=== PATIENT | female | born 1950 | race Caucasian/White ===

== ENCOUNTER → 2017-09-02 | Outpatient (CLI) | payer OTHER | LOC: M.MRI 01:42 | DX: G30.9 Alzheimer's disease, unspecified (principal); F02.80 Dementia in other diseases classified elsewhere, unspecified severity, without behavioral disturbance, psychotic disturbance, mood disturbance, and anxiety; F41.9 Anxiety disorder, unspecified; I10 Essential (primary) hypertension; K21.9 Gastro-esophageal reflux disease without esophagitis ==

== ENCOUNTER → 2018-01-29 | Outpatient (CLI) | payer OTHER | LOC: M.LAB 15:38 | DX: E03.8 Other specified hypothyroidism (principal); F02.80 Dementia in other diseases classified elsewhere, unspecified severity, without behavioral disturbance, psychotic disturbance, mood disturbance, and anxiety; F32.9 Major depressive disorder, single episode, unspecified; F41.9 Anxiety disorder, unspecified ==

== ENCOUNTER → 2019-01-13 | Outpatient (CLI) | payer OTHER | LOC: M.MRI 13:30 | DX: M48.02 Spinal stenosis, cervical region (principal); M47.22 Other spondylosis with radiculopathy, cervical region; M50.11 Cervical disc disorder with radiculopathy, high cervical region; N64.4 Mastodynia ==

== ENCOUNTER 2019-01-28 12:11 | Inpatient (IN) | payer OTHER ==
[~2019-01-28] VITALS: Ht 162.6 cm; Wt 93.0 kg
[2019-01-28 12:12] VITALS: BP 185/95
[2019-01-28] MEDS ORDERED: NAMENDA 10 MG T10 MG PO ×2 (12:30→14:28)
[2019-01-28 12:48] LABS: HEMATOCRIT 40.7 % (37.0-47.0); HEMOGLOBIN 13.5 gm/dL (12.0-15.0); MCH 30.5 pg (26.0-34.0); MCHC 33.1 g/dL (28.0-37.0); MCV 92.1 fL (80.0-100.0); MPV 7.5 fl. (7.2-11.1); NUCLEATED RBCS 0 /100WBC; PLATELET COUNT* 235 thou/uL (150-400); RBC 4.42 mil/uL (4.20-5.00); RDW-CV 13.7 % (10.5-14.5); WBC 7.5 thou/uL (4.0-11.0)
[2019-01-28 12:54] LABS: URINE BILIRUBIN NEGATIVE (Negative); URINE BLOOD NEGATIVE (Negative); URINE CLARITY CLEAR; URINE COLOR YELLOW; URINE GLUCOSE-RANDOM NEGATIVE (Negative); URINE KETONES TRACE (Negative); URINE LEUKOCYTES-REFLEX NEGATIVE (Negative); URINE NITRITE-REFLEX NEGATIVE (Negative); URINE PROTEIN 2+ (Negative); URINE SPECIFIC GRAVITY >= 1.030 (1.005-1.030); URINE UROBILINOGEN 0.2 E.U./dl (0.2-1.0)
[2019-01-28 12:57] LABS: PROTIME 10.5 Seconds (9.20-11.50)
[2019-01-28 13:07] LABS: SQUAMOUS 4-10 Moderate /LPF (0-3)
[2019-01-28 13:08] LABS: URINE WBC-REFLEX 0-5 Rare /HPF (0-5)
[2019-01-28 13:09] LABS: CRYSTALS None Seen /LPF (None Seen); HYALINE CASTS 0-3 Few /LPF (None Seen); MUCUS >6 Heavy strn/LPF (None Seen); URINE RBC 0-2 Rare /HPF (0-2)
[2019-01-28 13:20] LABS: ANION GAP 9 mmol/L (7-16); BUN 12 mg/dL (7-18); CALCIUM 8.8 mg/dL (8.5-10.1); CHLORIDE 105 mmol/L (98-107); CO2 24 mmol/L (21-32); GLUCOSE 136 mg/dL (70-99); POTASSIUM 4.7 mmol/L (3.5-5.1); SODIUM 138 mmol/L (136-145)
[2019-01-28 13:30] LABS: ABSOLUTE LYMPHOCYTES 0.5 thou/uL (0.8-5.3); ABSOLUTE MONOCYTES 0.2 thou/uL (0.0-1.2); ABSOLUTE NEUTROPHILS 6.8 thou/uL (1.6-8.1); PLATELET ESTIMATE ADEQUATE
[2019-01-28 13:33] LABS: ALBUMIN 3.4 g/dL (3.4-5.0); ALKALINE PHOSPHATASE 95 U/L (46-116); LIPASE 108 U/L (73-393); SGOT 25 U/L (15-37); SGPT 17 U/L (30-65); TOTAL BILIRUBIN 0.5 mg/dL (<0.1-1.0); TOTAL PROTEIN 7.2 g/dL (6.4-8.2); TROPONIN-I LEVEL <0.06 ng/mL (<0.06)
--- NOTE | 2019-01-28 14:18 | NUR ---
DR. MEHTA AT BEDSIDE WITH PATIENT.
[2019-01-28] MEDS ORDERED: CELEXA10 MG PO (14:27)
[2019-01-28] MEDS ORDERED: SYNTHROID75 MCG PO (14:28)
[2019-01-28] MEDS ORDERED: ZANTAC 150MG T150 MG PO (14:28)
[2019-01-28 15:10] VITALS: BP 154/68
--- NOTE | 2019-01-28 15:18 | EKG ---
[place] [address] ELECTROCARDIOGRAM REPORT Name: JANES HUERTAS Room: [address] ADM IN [facility].#: [id number] Admission: 01/28/19 Attend Phys: Latoya Sanderson MD Discharge: Date of : 46 Report #: [id number] THIS REPORT FOR: //name// [facility] ED Test Date: 2019-01-28 Test Time: 12:16:49 Pat Name: JANES HUERTAS Department: Room: [facility] Gender: F Wax Engraver: EV : 1950 Requested By: Korey Bateman Order Number: [id number] MD: Rogelio Ware Measurements Intervals [place] Rate: 60 P: 62 CT: 167 QRS: -17 QRSD: 107 T: 3 QT: 437 QTc: 437 Interpretive Statements Sinus rhythm Borderline left axis deviation Baseline wander in lead(s) V3 No previous ECG available for comparison Electronically Signed On 01-28-2019 15:17:58 CDT by Rogelio Ware [email or web address] <ELECTRONICALLY SIGNED> By: Rogelio Ware MD, [facility] 01/28/19 1517 1216 121 Rogelio Ware MD, [facility] /EPI
[2019-01-28 16:05] VITALS: BP 129/51
--- NOTE | 2019-01-28 18:04 | NUR ---
PATIENT ARRIVED TO FLOOR FROM ER AT 1605. NO SIGNS OF DISTRESS OBSERVED. ALL SAFETY MEASURES MAINTAINED. CALL LIGHT WIHTIN REACH. PATIENT AND FAMILY DENIES FURTHER NEEDS AT THIS TIME. CHOWDHURY PLACED IN ER. PATIENT DENIES PAIN AND NAUSEA AT THIS TIME.
[2019-01-28 21:03] VITALS: BP 191/91
[2019-01-28 22:49] VITALS: BP 139/60
[2019-01-29 04:49] LABS: HEMATOCRIT 39.9 % (37.0-47.0); HEMOGLOBIN 13.2 gm/dL (12.0-15.0); MCH 30.2 pg (26.0-34.0); MCV 91.5 fL (80.0-100.0); MPV 7.5 fl. (7.2-11.1); RBC 4.36 mil/uL (4.20-5.00); RDW-CV 13.6 % (10.5-14.5); WBC 9.1 thou/uL (4.0-11.0)
[2019-01-29 04:56] LABS: CALCIUM 8.1 mg/dL (8.5-10.1); MAGNESIUM 1.7 mg/dL (1.8-2.4); POTASSIUM 3.8 mmol/L (3.5-5.1)
--- NOTE | 2019-01-29 05:44 | NUR ---
AT THE BEGINNING OF THE SHIFT SHE REPORTED A HEADACHE. GAVE HER TYLENOL AND REASSESSED. HER HEADACHE HAD LESSENED. HER BLOOD PRESSURE WAS 190/91 I GOT AN ORDER FOR HYDRALAZINE WHICH WAS BENEFICIAL IT LOWERED TO 139/43. SHE DID NOT REPORT ANY FURTHER PAIN, HAD HER AT BEDSIDE ALL SHIFT. WILL CONTINUE TO MONITOR.
[2019-01-29 09:00] VITALS: BP 143/60
[2019-01-29 16:00] VITALS: BP 135/54
--- NOTE | 2019-01-29 18:34 | NUR ---
ASSUMED CARE OF PATIENT AT APPROX 0730. ALERT AND ORIENTED X4. ASSESSMENT COMPLETED AND CHARTED. VSS ON ROOM AIR. COMPLAINT OF HEADACHE THIS MORNING, RESOLVED WITH TYLENOL. NO OTHER COMPLAINTS OF PAIN THIS SHIFT. FLUIDS AND ANTIBIOTICS INFUSED ORDERED. PATIENT UP WITH ASSIST OF ONE, WITH WALKER. PATIENT ADVANCED TO CLEAR LIQUIDS AND TOLERATING WELL. FALL PRECAUTIONS IN PLACE. CALL LIGHT WITHIN REACH. HOURLY ROUNDS COMPLETED. WILL CONTINUE TO MONITOR.
[2019-01-29 19:45] VITALS: BP 130/62
[2019-01-30] VITALS (8 sets, daily range): BP systolic 145–201; BP diastolic 66–88
--- NOTE | 2019-01-30 04:38 | NUR ---
PATIENT ALERT AND ORIENTED X 2-3. EASILY RE-ORIENTED. PATIENT IS AWARE THAT SHE IS FORGETING SOMETHING AND THAT MAKES HER ANXIOUS AT TIMES. SPEECH CLEAR BUT HESITANT AT TIMES. TURNS SELF. CHOWDHURY PATENT TO DEPENDENT DRAINAGE. HAS DENIED PAIN OR NAUSEA. SCOPALAMINE PATCH PRESENT. VITAL SIGNS STABLE. BED ALARM ON FOR SAFETY. AT BEDSIDE. CONTINUE TO MONITOR.
--- NOTE | 2019-01-30 07:35 | NUR ---
AMBULATED PATIENT TO BR WITH GAIT BELT AND CGA. STEADY GAIT. ASSISTED TO SITTING ON TOILET. THIS NURSE WAS IN ROOM NEXT TO BR DOOR WHEN ODD THUD HEARD AND OPENED DOOR TO FIND PATIENT FACE DOWN ON FLOOR. UNABLE TO ASCERTAIN PRESENCE OF PULSE OR RESPIRATIONS SO CODE WAS CALLED. (0554) THEN IMMEDIATELY THERAFTER PATIENT ROLLED TO SIDE WITH CAROTID PULSE AND RESPIRATIONS FOUND TO BE PRESENT. CODE TEAM HAD ARRIVED AT THIS TIME WITH BRIEF ASSSESSMENT BY ER PHYSICIAN. PATIENT RESPONDING TO NAME AND INSTRUCTIONS. ASSIST TO WHEELCHAIR AND BACK TO BED. 0604 FIRST SET OF VITAL SIGNS 201/75, HR 61 BPM, R 16 AND ROOM AIR O2 SAT 98%. FOR FURTHER VS POST FALL SEE PCI. RIGHT BOTTOM LIP BLEEDING AND UPPER RIGHT LIP BRUISED. NOSE WITH CUT ON BRIDGE AND ALREADY SWOLLEN. PATIENT STATED HER NECK HURT WELL. C-COLLAR APPLIED. EKG COMPLETED AND PATEINT TO CT BY BED AT 0635. MESSAGAE SENT BY Bao KIM TO HOSPITALIST at 0633 WUTH MESSAGE RECEIVED AT 0636. PATIENT BACK TO ROOM AT 0650. WAS PRESENT IN ROOM AT TIME OF INCIDENT AND UPDATED WITH ALL PLANS. REPORT TO ON-COMING NURSE.
[2019-01-30 09:52] LABS: ABSOLUTE BASOPHILS 0.1 thou/uL (0.0-0.2); ABSOLUTE LYMPHOCYTES 2.1 thou/uL (0.8-5.3); ABSOLUTE MONOCYTES 0.4 thou/uL (0.0-1.2); ABSOLUTE NEUTROPHILS 3.4 thou/uL (1.6-8.1); BASOPHILS 0.9 %; EOSINOPHILS 0.4 %; HEMATOCRIT 34.5 % (37.0-47.0); HEMOGLOBIN 11.5 gm/dL (12.0-15.0); LYMPHOCYTES 34.7 %; MCH 30.7 pg (26.0-34.0); MCHC 33.3 g/dL (28.0-37.0); MCV 92.1 fL (80.0-100.0); MONOCYTES 7.4 %; NUCLEATED RBCS 0 /100WBC; POLYS 56.6 %; RBC 3.74 mil/uL (4.20-5.00); RDW-CV 13.6 % (10.5-14.5); WBC 5.9 thou/uL (4.0-11.0)
[2019-01-30 09:57] LABS: CALCIUM 7.5 mg/dL (8.5-10.1); CREATININE 0.9 mg/dL (0.6-1.3); POTASSIUM 3.2 mmol/L (3.5-5.1)
[2019-01-30 10:02] LABS: PLATELET COUNT* 170 thou/uL (150-400)
--- NOTE | 2019-01-30 12:15 | NUR ---
REPORT GIVEN TO RECEIVING MANUFACTURING MANAGEMENT ASSOCIATE. PATIENT TRANSFERRED PER BED OFF JSSI UNIT PER BOWLING BALL ENGRAVER. PATIENT ALERT. BELONGINGS WITH PATIENT. IV CATH SITE WNL. NO ACUTE DISTRESS NOTED AT THIS TIME. ~LAZRN
--- NOTE | 2019-01-30 20:19 | NUR ---
ASSUSSMED CARE OF PT THIS AFTERNOON. PT ROUNDING COMPLETED. PT HAS HAD NEEDS MET THIS SHIFT. PTS CHOWDHURY DCED THIS AFTERNOON. PT UP TO THE BATHROOM WITH STAND BY ASSIST MULTIPLE TIME THIS SHIFT. MEDICATIONS GIVEN CHARTED. FAMILY AT THE BEDSIDE FOR MOST OF THE SHIFT.
[2019-01-31] VITALS (7 sets, daily range): BP systolic 140–195; BP diastolic 56–86
--- NOTE | 2019-01-31 03:35 | NUR ---
PT ALERT ORIENTED. UP TO BR WITH ONE PERSON ASSIST. TELEMETRY SHOWS SB. LIDOCAIN USED ON LOWER LIP FOR PAIN. STAYING OVERNIGHT WITH PT.
[2019-01-31 04:55] LABS: HEMATOCRIT 33.6 % (37.0-47.0); HEMOGLOBIN 10.9 gm/dL (12.0-15.0); MCH 30.3 pg (26.0-34.0); MCHC 32.4 g/dL (28.0-37.0); MCV 93.5 fL (80.0-100.0); MPV 7.4 fl. (7.2-11.1); RBC 3.6 mil/uL (4.20-5.00); RDW-CV 13.7 % (10.5-14.5); WBC 5.8 thou/uL (4.0-11.0)
[2019-01-31 05:52] LABS: CALCIUM 7.8 mg/dL (8.5-10.1); CREATININE 0.9 mg/dL (0.6-1.3); MAGNESIUM 1.8 mg/dL (1.8-2.4); POTASSIUM 3.3 mmol/L (3.5-5.1)
--- NOTE | 2019-01-31 06:46 | NUR ---
am potassium 3.3. protocal started 40meq given
--- NOTE | 2019-01-31 07:37 | EKG ---
[place] [address] ELECTROCARDIOGRAM REPORT Name: HUERTASJANES MICHAELS Room: [address] ADM IN [facility].#: [id number] Admission: 01/28/19 Attend Phys: Latoya Sanderson MD Discharge: Date of : 46 Report #: [id number] THIS REPORT FOR: //name// [facility] ED Test Date: 2019-01-30 Test Time: 06:21:05 Pat Name: JANES HUERTAS Department: Room: [facility] Gender: F Traveling Auditor: RAZA : 1950 Requested By: Atif Polanco Order Number: [id number] MD: Rogelio Ware Measurements Intervals [place] Rate: 53 P: -17 ID: 147 QRS: -19 QRSD: 94 T: 19 QT: 432 QTc: 406 Interpretive Statements Sinus btradycardia Borderline left axis deviation Low voltage, precordial leads Compared to ECG 01/28/2019 12:16:49 Low QRS voltage now present Electronically Signed On 01-31-2019 7:37:12 CDT by Rogelio Ware [email or web address] <ELECTRONICALLY SIGNED> By: Rogelio Ware MD, FAC 01/31/19 0737 0621 0 Rogelio Ware MD, [facility] /EPI
[2019-01-31] MEDS ORDERED: METOPROLOL SUCC25 M1 PO (11:58)
--- NOTE | 2019-01-31 12:56 | NUR ---
ASSUMED CARE OF PT AT 0700. PT VITALS STABLE WITH PAIN OF 1-2 TO FACE R/T PRIOR FALL. PT WAS ALERT WITH CONFUSION, FAMILY PRESENT. PT WAS FALL RISK WITH BED ALARM ON. COMPLETED OSH BP, NEG RESULT. DID EXPERIENCE N&V WITH MORNING MEDICATIONS, ADMINISTERED PRN EFFECTIVE RESULT. RECIEVED DISCHARGE ORDERS FOR PT, DC'D IV, PROVIDED EDUCATION TO PT AND FAMILY ON MEDICATIONS AND DISCHARGE ORDERS. PT RECIEVED NEW RX AND EDUCATIONAL DOCUMENTS. ASSISTED OF UNIT AT 1255 BY FAMILY AND SALES SPECIALIST FOR DISCHARGE.
--- NOTE | 2019-01-31 14:34 | NUR ---
I HAVE REVIEWED AND AGREE WITH THE ASSESMENT AND NOTE OF DANIEL FRANCISCO ON 01/31/19
== END 2019-01-31 12:55 | disposition home or self-care (01) | DRG 392 ==
LOC: M.ERS 12:11 → M.ORTHSURG 14:14 → M.TBA-ER 14:14 → M.ORTHSURG 15:17 → M.2W 01-30 12:05
PROVIDERS: Family Medicine; ADMIT Internal Medicine
DX: A08.4 Viral intestinal infection, unspecified (principal); R65.10 Systemic inflammatory response syndrome (SIRS) of non-infectious origin without acute organ dysfunction; S02.2XXA Fracture of nasal bones, initial encounter for closed fracture; I10 Essential (primary) hypertension; R55 Syncope and collapse; K21.9 Gastro-esophageal reflux disease without esophagitis; E03.9 Hypothyroidism, unspecified; R07.9 Chest pain, unspecified; X58.XXXA Exposure to other specified factors, initial encounter; Y93.89 Activity, other specified; Y92.89 Other specified places as the place of occurrence of the external cause; Y99.8 Other external cause status; Z79.899 Other long term (current) drug therapy

== ENCOUNTER → 2020-01-17 | Outpatient (CLI) | payer MEDICARE ==
[~2020-01-17] VITALS: Ht 165.1 cm; Wt 89.4 kg
[~2020-01-17] MED LIST: CELEXA10 MG PO; CRANBERRY500 M2 PO; DOXYCYCLINE 10100 M2 PO; METOPROLOL SUCC25 M1 PO; NAMENDA 10 MG T10 MG PO; SYNTHROID88 MC1 PO; ZANTAC 150MG T150 MG PO; ZESTRIL10 MG PO
[2020-01-17 10:34] LABS: ABSOLUTE BASOPHILS 0.1 thou/uL (0.0-0.2); ABSOLUTE LYMPHOCYTES 1.8 thou/uL (0.8-5.3); ABSOLUTE MONOCYTES 0.5 thou/uL (0.0-1.2); ABSOLUTE NEUTROPHILS 4.9 thou/uL (1.6-8.1); EOSINOPHILS 0.4 %; HEMATOCRIT 40.2 % (37.0-47.0); HEMOGLOBIN 13.6 gm/dL (12.0-15.0); LYMPHOCYTES 24.3 %; MCH 30.8 pg (26.0-34.0); MCHC 33.9 g/dL (28.0-37.0); MCV 90.9 fL (80.0-100.0); MONOCYTES 7.4 %; MPV 7.2 fl. (7.2-11.1); NUCLEATED RBCS 0 /100WBC; PLATELET COUNT* 260 thou/uL (150-400); POLYS 66.9 %; RBC 4.43 mil/uL (4.20-5.00); RDW-CV 13.5 % (10.5-14.5); WBC 7.3 thou/uL (4.0-11.0)
[2020-01-17 10:50] LABS: APTT 23.7 Seconds (25.0-31.3); INR 1.1
[2020-01-17 10:55] LABS: CREATININE 1.1 mg/dL (0.6-1.3); POTASSIUM 3.5 mmol/L (3.5-5.1)
[2020-01-17 11:08] LABS: ALBUMIN 3.8 g/dL (3.4-5.0); CK-MB MASS 1.2 ng/mL (<0.5-3.6); MAGNESIUM 2.1 mg/dL (1.8-2.4); TOTAL BILIRUBIN 0.5 mg/dL (<0.1-1.0); TOTAL PROTEIN 7.6 g/dL (6.4-8.2)
[2020-01-17 12:20] VITALS: BP 196/73
--- NOTE | 2020-01-17 17:15 | EKG ---
[place] [address] ELECTROCARDIOGRAM REPORT Name: JANES HUERTAS Room: [facility]#: [id number] Admission: 01/17/20 Attend Phys: FOR Kathleen GONZALEZ U Discharge: Date of : 46 Date of Service: 01/17/20 1019 Report #: [id number] THIS REPORT FOR: //name// [facility] ED Test Date: 2020-01-17 Test Time: 10:19:22 Pat Name: JANES HUERTAS Department: Room: Gender: F Engagement Director: SARITA : 1950 Requested By: Korey Bateman Order Number: [id number] MD: Raymundo Ramesh Measurements Intervals [place] Rate: 59 P: 57 [place]: 181 QRS: -20 QRSD: 100 T: 27 QT: 426 QTc: 422 Interpretive Statements Sinus rhythm Borderline left axis deviation Baseline wander in lead(s) II,III,aVL,aVF Compared to ECG 01/30/2019 06:21:05 No significant changes Electronically Signed On 01-17-2020 17:15:43 CDT by Raymundo Ramesh [email or web address] <ELECTRONICALLY SIGNED> By: Raymundo Ramesh MD, [facility] 01/17/20 1715 1019 1019 Raymundo Ramesh MD, FAC /EPI
== END ==
LOC: M.WC 08:00 → M.ERS 08:03
PROVIDERS: Family Medicine
DX: S81.812A Laceration without foreign body, left lower leg, initial encounter (principal); R07.9 Chest pain, unspecified; E03.9 Hypothyroidism, unspecified; M19.90 Unspecified osteoarthritis, unspecified site; F03.90 Unspecified dementia, unspecified severity, without behavioral disturbance, psychotic disturbance, mood disturbance, and anxiety; F32.9 Major depressive disorder, single episode, unspecified; F41.9 Anxiety disorder, unspecified; I11.9 Hypertensive heart disease without heart failure; I31.3 Pericardial effusion (noninflammatory); J98.11 Atelectasis; M25.78 Osteophyte, vertebrae; Z87.891 Personal history of nicotine dependence; W19.XXXA Unspecified fall, initial encounter; Y93.89 Activity, other specified; Y92.89 Other specified places as the place of occurrence of the external cause; Y99.8 Other external cause status

== ENCOUNTER → 2020-02-07 | Outpatient (CLI) | payer MEDICARE | LOC: M.WC 08:15 | PROVIDERS: ATTEND Emergency Medicine Undersea and Hyperbaric Medicine | DX: S81.812D Laceration without foreign body, left lower leg, subsequent encounter (principal); I10 Essential (primary) hypertension; E03.9 Hypothyroidism, unspecified; M19.90 Unspecified osteoarthritis, unspecified site; R06.01 Orthopnea; F03.90 Unspecified dementia, unspecified severity, without behavioral disturbance, psychotic disturbance, mood disturbance, and anxiety; F32.9 Major depressive disorder, single episode, unspecified; F41.9 Anxiety disorder, unspecified; W19.XXXD Unspecified fall, subsequent encounter ==

== ENCOUNTER → 2020-02-21 | Outpatient (CLI) | payer MEDICARE | LOC: M.WC 03:28 | PROVIDERS: ATTEND Emergency Medicine Undersea and Hyperbaric Medicine | DX: S81.812D Laceration without foreign body, left lower leg, subsequent encounter (principal); E03.9 Hypothyroidism, unspecified; I10 Essential (primary) hypertension; M19.90 Unspecified osteoarthritis, unspecified site; F03.90 Unspecified dementia, unspecified severity, without behavioral disturbance, psychotic disturbance, mood disturbance, and anxiety; F41.9 Anxiety disorder, unspecified; F32.9 Major depressive disorder, single episode, unspecified; Z87.891 Personal history of nicotine dependence; W19.XXXD Unspecified fall, subsequent encounter ==

== ENCOUNTER → 2020-02-28 | Outpatient (CLI) | payer MEDICARE | LOC: M.WC 05:03 | PROVIDERS: ATTEND Emergency Medicine Undersea and Hyperbaric Medicine | DX: S81.812D Laceration without foreign body, left lower leg, subsequent encounter (principal); I10 Essential (primary) hypertension; E03.9 Hypothyroidism, unspecified; M19.90 Unspecified osteoarthritis, unspecified site; F03.90 Unspecified dementia, unspecified severity, without behavioral disturbance, psychotic disturbance, mood disturbance, and anxiety; F32.9 Major depressive disorder, single episode, unspecified; F41.9 Anxiety disorder, unspecified; Z87.891 Personal history of nicotine dependence; W22.8XXD Striking against or struck by other objects, subsequent encounter ==

== ENCOUNTER → 2020-03-06 | Outpatient (CLI) | payer MEDICARE | LOC: M.WC 05:04 | PROVIDERS: ATTEND Emergency Medicine Undersea and Hyperbaric Medicine | DX: S81.812D Laceration without foreign body, left lower leg, subsequent encounter (principal); E03.9 Hypothyroidism, unspecified; I10 Essential (primary) hypertension; M19.90 Unspecified osteoarthritis, unspecified site; F32.9 Major depressive disorder, single episode, unspecified; F03.90 Unspecified dementia, unspecified severity, without behavioral disturbance, psychotic disturbance, mood disturbance, and anxiety; F41.9 Anxiety disorder, unspecified; Z87.891 Personal history of nicotine dependence; W22.8XXD Striking against or struck by other objects, subsequent encounter ==

== ENCOUNTER → 2020-03-13 | Outpatient (CLI) | payer MEDICARE | LOC: M.WC 05:30 | PROVIDERS: ATTEND Emergency Medicine Undersea and Hyperbaric Medicine | DX: S81.812D Laceration without foreign body, left lower leg, subsequent encounter (principal); E03.9 Hypothyroidism, unspecified; I10 Essential (primary) hypertension; M19.90 Unspecified osteoarthritis, unspecified site; F03.90 Unspecified dementia, unspecified severity, without behavioral disturbance, psychotic disturbance, mood disturbance, and anxiety; F32.9 Major depressive disorder, single episode, unspecified; F41.9 Anxiety disorder, unspecified; Z87.891 Personal history of nicotine dependence; W22.8XXD Striking against or struck by other objects, subsequent encounter ==

== ENCOUNTER 2020-03-19 15:27 | Inpatient (IN) | payer MEDICARE ==
[~2020-03-19] VITALS: Ht 167.6 cm; Wt 86.6 kg
[2020-03-19 15:35] VITALS: BP 150/63
[2020-03-19 15:58] LABS: ABSOLUTE LYMPHOCYTES 1.3 thou/uL (0.8-5.3); ABSOLUTE MONOCYTES 0.4 thou/uL (0.0-1.2); ABSOLUTE NEUTROPHILS 1.2 thou/uL (1.6-8.1); LYMPHOCYTES 43.6 %; MCH 30.2 pg (26.0-34.0); MCV 88.7 fL (80.0-100.0); MONOCYTES 13.2 %; MPV 7.5 fl. (7.2-11.1); NUCLEATED RBCS 0 /100WBC; PLATELET COUNT* 165 thou/uL (150-400); POLYS 42.2 %; RBC 4.63 mil/uL (4.20-5.00); RDW-CV 14.1 % (10.5-14.5); WBC 2.9 thou/uL (4.0-11.0)
[2020-03-19 16:10] LABS: CALCIUM 8.7 mg/dL (8.5-10.1); CREATININE 1.3 mg/dL (0.6-1.3); POTASSIUM 3.5 mmol/L (3.5-5.1)
[2020-03-19 16:13] LABS: ALBUMIN 3.7 g/dL (3.4-5.0); TOTAL BILIRUBIN 0.3 mg/dL (<0.1-1.0); TOTAL PROTEIN 7.6 g/dL (6.4-8.2)
[2020-03-19 16:35] LABS: URINE BLOOD NEGATIVE (Negative); URINE CLARITY CLEAR; URINE COLOR YELLOW; URINE GLUCOSE-RANDOM NEGATIVE (Negative); URINE KETONES 1+ (Negative); URINE LEUKOCYTES-REFLEX NEGATIVE (Negative); URINE NITRITE-REFLEX NEGATIVE (Negative); URINE PROTEIN 1+ (Negative); URINE SPECIFIC GRAVITY >= 1.030 (1.005-1.030); URINE UROBILINOGEN 0.2 E.U./dl (0.2-1.0)
[2020-03-19 16:37] LABS: ICTOTEST (BILI CONFIRMATORY) Negative (Negative); URINE BILIRUBIN 1+ (Negative)
[2020-03-19 18:33] VITALS: BP 150/73
[2020-03-19 20:00] VITALS: BP 144/79
[2020-03-19] MEDS ORDERED: COZAAR 25 MG TA25 M1 PO (21:21)
[2020-03-19] MEDS ORDERED: VITAMIN B-121000 MC2 PO (21:22)
[2020-03-20 03:44] VITALS: BP 160/78
[2020-03-20 05:14] LABS: HEMATOCRIT 36.3 % (37.0-47.0); HEMOGLOBIN 12.3 gm/dL (12.0-15.0); MCH 30.1 pg (26.0-34.0); MCHC 33.8 g/dL (28.0-37.0); MCV 89.1 fL (80.0-100.0); MPV 8.5 fl. (7.2-11.1); RBC 4.08 mil/uL (4.20-5.00); WBC 2.9 thou/uL (4.0-11.0)
[2020-03-20 05:21] LABS: CALCIUM 7.4 mg/dL (8.5-10.1); POTASSIUM 3.3 mmol/L (3.5-5.1)
[2020-03-20 05:26] LABS: ALBUMIN 2.9 g/dL (3.4-5.0); MAGNESIUM 1.8 mg/dL (1.8-2.4); TOTAL BILIRUBIN 0.3 mg/dL (<0.1-1.0); TOTAL PROTEIN 6.3 g/dL (6.4-8.2)
[2020-03-20 08:00] VITALS: BP 170/69
--- NOTE | 2020-03-20 09:51 | EKG ---
[place] [address] ELECTROCARDIOGRAM REPORT Name: JANES HUERTAS Room: [address] ADM IN .R.#: [id number] Admission: 03/19/20 Attend Phys: Latoya Sanderson, Discharge: Date of : 46 Date of Service: 03/19/20 1545 Report #: [id number] THIS REPORT FOR: //name// [facility] ED Test Date: 2020-03-19 Test Time: 15:45:09 Pat Name: JANES HUERTAS Department: Room: [facility] Gender: F Station Helper: CALRI : 1950 Requested By: Korey Bateman Order Number: [id number] MD: Rogelio Ware Measurements Intervals [place] Rate: 68 P: 5 [place]: 146 QRS: -6 QRSD: 96 T: 13 QT: 427 QTc: 455 Interpretive Statements Sinus rhythm Borderline T abnormalities, anterior leads Compared to ECG 01/17/2020 10:19:22 T-wave abnormality now present Electronically Signed On 03-20-2020 9:51:07 CDT by Rogelio Ware [email or web address] <ELECTRONICALLY SIGNED> By: Rogelio Ware MD, FAC 03/20/20 0951 1545 1545 Rogelio Ware MD, [facility] /EPI
[2020-03-20 13:14] VITALS: BP 141/75
[2020-03-20 16:00] VITALS: BP 166/87
[2020-03-20 20:00] VITALS: BP 176/81
[2020-03-21] VITALS: BP 182/94
[2020-03-21 04:00] VITALS: BP 168/82
[2020-03-21 04:28] LABS: HEMATOCRIT 37.4 % (37.0-47.0); HEMOGLOBIN 12.5 gm/dL (12.0-15.0); MCH 29.5 pg (26.0-34.0); MCHC 33.3 g/dL (28.0-37.0); MCV 88.4 fL (80.0-100.0); MPV 8.1 fl. (7.2-11.1); RBC 4.23 mil/uL (4.20-5.00); RDW-CV 13.8 % (10.5-14.5); WBC 3.3 thou/uL (4.0-11.0)
[2020-03-21 04:34] LABS: CALCIUM 8.2 mg/dL (8.5-10.1); MAGNESIUM 1.8 mg/dL (1.8-2.4); POTASSIUM 3.5 mmol/L (3.5-5.1)
[2020-03-21 08:45] VITALS: BP 151/76
[2020-03-21 15:07] LABS: URINE BILIRUBIN NEGATIVE (Negative); URINE BLOOD 2+ (Negative); URINE CLARITY CLEAR; URINE COLOR YELLOW; URINE GLUCOSE-RANDOM NEGATIVE (Negative); URINE KETONES 2+ (Negative); URINE LEUKOCYTES-REFLEX TRACE (Negative); URINE NITRITE-REFLEX NEGATIVE (Negative); URINE PROTEIN 1+ (Negative); URINE SPECIFIC GRAVITY >= 1.030 (1.005-1.030); URINE UROBILINOGEN 0.2 E.U./dl (0.2-1.0)
[2020-03-21 15:23] LABS: CASTS None Seen /LPF (None Seen); CRYSTALS None Seen /LPF (None Seen); MUCUS 4-6 Moderate strn/LPF (None Seen); SQUAMOUS 0-3 Few /LPF (0-3); URINE WBC-REFLEX 0-5 Rare /HPF (0-5)
[2020-03-21 16:00] VITALS: BP 183/105
[2020-03-21 20:00] VITALS: BP 173/86
[2020-03-22] VITALS: BP 147/66
[2020-03-22 04:00] VITALS: BP 156/81
[2020-03-22] MEDS ORDERED: KEFLEX500 M1 PO (07:25)
[2020-03-22] MEDS ORDERED: FLORASTOR250 MG PO (07:25)
[2020-03-22 08:00] VITALS: BP 174/75
[2020-03-22 11:43] VITALS: BP 174/75
== END 2020-03-22 11:49 | disposition home or self-care (01) | DRG 178 ==
LOC: M.ERS 15:27 → M.2W 16:54 → M.TBA-ER 16:54 → M.2W 18:55
PROVIDERS: Family Medicine; ADMIT Internal Medicine; ATTEND Internal Medicine
DX: U07.1 COVID-19 (principal); E44.0 Moderate protein-calorie malnutrition; R65.10 Systemic inflammatory response syndrome (SIRS) of non-infectious origin without acute organ dysfunction; F03.90 Unspecified dementia, unspecified severity, without behavioral disturbance, psychotic disturbance, mood disturbance, and anxiety; K21.9 Gastro-esophageal reflux disease without esophagitis; E03.9 Hypothyroidism, unspecified; E87.6 Hypokalemia; K52.9 Noninfective gastroenteritis and colitis, unspecified; Z79.899 Other long term (current) drug therapy; Z28.21 Immunization not carried out because of patient refusal; Z68.30 Body mass index [BMI] 30.0-30.9, adult

== ENCOUNTER 2020-03-24 20:37 | Emergency (ER) | payer MEDICARE ==
[~2020-03-24] VITALS: Ht 165.1 cm; Wt 88.9 kg
[~2020-03-24 20:37] MED LIST changes: +COZAAR 25 MG TA25 M1 PO; +FLORASTOR250 MG PO; +KEFLEX500 M1 PO; +VITAMIN B-121000 MC2 PO
[2020-03-24 21:26] LABS: ABSOLUTE LYMPHOCYTES 1.2 thou/uL (0.8-5.3); ABSOLUTE MONOCYTES 0.6 thou/uL (0.0-1.2); ABSOLUTE NEUTROPHILS 3.3 thou/uL (1.6-8.1); BASOPHILS 0.4 %; HEMATOCRIT 37.5 % (37.0-47.0); HEMOGLOBIN 12.7 gm/dL (12.0-15.0); LYMPHOCYTES 22.8 %; MCH 29.7 pg (26.0-34.0); MCV 87.3 fL (80.0-100.0); MONOCYTES 11.9 %; MPV 8.2 fl. (7.2-11.1); NUCLEATED RBCS 0 /100WBC; PLATELET COUNT* 200 thou/uL (150-400); POLYS 64.9 %; RBC 4.29 mil/uL (4.20-5.00); RDW-CV 13.9 % (10.5-14.5); WBC 5.1 thou/uL (4.0-11.0)
[2020-03-24 21:36] LABS: APTT 27.1 Seconds (25.0-31.3); CALCIUM 8.5 mg/dL (8.5-10.1); INR 1.1
[2020-03-24 21:38] LABS: POTASSIUM 2.8 mmol/L (3.5-5.1)
[2020-03-24 21:46] LABS: ALBUMIN 3.2 g/dL (3.4-5.0); TOTAL BILIRUBIN 0.4 mg/dL (<0.1-1.0); TOTAL PROTEIN 6.9 g/dL (6.4-8.2)
[2020-03-24 22:24] VITALS: BP 139/58
--- NOTE | 2020-03-25 12:14 | EKG ---
[place] [address] ELECTROCARDIOGRAM REPORT Name: JANES HUERTAS Room: [facility]#: [id number] Admission: 03/24/20 Attend Phys: Discharge: 03/24/20 Date of : 46 Date of Service: 03/24/202102 Report #: [id number] THIS REPORT FOR: //name// [facility] ED Test Date: 2020-03-24 Test Time: 21:03:28 Pat Name: JANES HUERTAS Department: Room: Gender: F Hospitality Director: SARA : 1950 Requested By: Korey Bateman Order Number: [id number] MD: Obie Shore Measurements Intervals [place] Rate: 60 P: -10 [place]: 137 QRS: -21 QRSD: 96 T: 4 QT: 419 QTc: 419 Interpretive Statements Sinus rhythm Borderline left axis deviation Abnormal R-wave progression, late transition Compared to ECG 03/19/2020 15:45:09 T-wave abnormality no longer present Electronically Signed On 03-25-2020 12:14:32 CDT by Obie Shore [email or web address] <ELECTRONICALLY SIGNED> By: Reji Shore MD, FACC 03/25/204 02 02 Reji Shore MD, [facility] /EPI
== END 2020-03-24 22:20 | disposition home or self-care (01) ==
LOC: M.ERS 20:37
PROVIDERS: Family Medicine
DX: U07.1 COVID-19 (principal); R06.00 Dyspnea, unspecified; K21.9 Gastro-esophageal reflux disease without esophagitis; E03.9 Hypothyroidism, unspecified; Z79.899 Other long term (current) drug therapy

== ENCOUNTER 2020-04-30 17:42 | Emergency (ER) | payer MEDICARE ==
[~2020-04-30] VITALS: Ht 160 cm; Wt 86.2 kg
[2020-04-30] MEDS ORDERED: NORCO 5-325 TA1 EAC2 PO (19:06)
[2020-04-30] MEDS ORDERED: DOXYCYCLINE 10100 MG PO (19:06)
[2020-04-30] MEDS ORDERED: CENTANY30 GM TOP (19:08)
[2020-04-30 19:20] VITALS: BP 146/81
== END 2020-04-30 19:20 | disposition home or self-care (01) ==
LOC: M.ERS 17:42
DX: M79.662 Pain in left lower leg (principal); K21.9 Gastro-esophageal reflux disease without esophagitis; E03.9 Hypothyroidism, unspecified

== ENCOUNTER → 2020-05-28 | Outpatient (CLI) | payer MEDICARE ==
[~2020-05-28] MED LIST changes: +CENTANY30 GM TOP; +DOXYCYCLINE 10100 MG PO; +NORCO 5-325 TA1 EAC2 PO
--- NOTE | 2020-05-28 14:39 | 2DMMODE ---
[place] [address] 2 D/M-MODE ECHOCARDIOGRAM Name: JANES HUERTAS Room: [facility]#: [id number] Admission: 05/28/20 Attend Phys: Rogelio Ware MD Discharge: Date of : 46 Date of Service: 05/28/20 1439 Report #: [id number] THIS REPORT FOR: cc: Jamar Ham,Jamar Portillo,Raymundo Hess MD [facility] ~ APPROVED REPORT Study performed: 05/28/2020 09:53:02 EXAM: Comprehensive 2D, Doppler, and color-flow Echocardiogram Patient Location: Out-Patient BSA: 1.92 HR: 62 bpm BP: 150/85 mmHg Other Information Study Quality: Good Indications Chest Pain Edema 2D Dimensions IVSd: 12.22 (7-11mm) LVOT Diam: 20.78 (18-24mm) LVDd: 47.47 mm PWd: 10.64 (7-11mm) Ascending Ao: 30.60 (22-36mm) LVDs: 29.38 (25-40mm) Aortic Root: 28.46 mm Volumes Left Atrial Volume (Systole) LA ESV Index: 14.90 mL/m2 Aortic Valve AoV Peak Derek.: 1.16 m/s AO Peak Gr.: 5.39 mmHg LVOT Max P.11 mmHg AO Mean Gr.: 2.91 mmHg LVOT Mean P.11 mmHg LVOT Max V: 0.73 m/s AO V2 VTI: 25.67 cm LVOT Mean V: 0.49 m/s SHERRI (VTI): 2.72 cm2 LVOT V1 VTI: 20.58 [place] [address] 2 D/M-MODE ECHOCARDIOGRAM Name: JANES HUERTAS Room: [facility]#: [id number] Admission: 05/28/20 Attend Phys: Rogelio Ware MD Discharge: Date of : 46 Date of Service: 05/28/20 1439 Report #: [id number] E/A Ratio: 0.66 MV Decel. Time: 192.69 ms MV E Max Derek.: 0.49 m/s MV PHT: 55.88 ms MVA (PHT): 3.94 cm2 TDI E/Lateral E': 7.00 E/Medial E': 6.13 Medial E' Derek.: 0.08 m/s Lateral E' Derek.: 0.07 m/s Pulmonary Valve PV Peak Derek.: 0.88 m/s PV Peak Gr.: 3.10 mmHg Left Ventricle The left ventricle is normal size. There is normal LV segmental wall motion. There is normal left ventricular wall thickness. Left ventricular systolic function is normal. The left ventricular ejection fraction is within the normal range. LVEF is 55%. Grade I - abnormal relaxation pattern. Right Ventricle The right ventricle is normal size. The right ventricular systolic function is normal. Atria The left atrium size is normal. The right atrium size is normal. Aortic Valve The aortic valve is normal in structure. No aortic regurgitation is present. There is no aortic valvular stenosis. Mitral Valve The mitral valve is normal in structure. There is no mitral valve regurgitation noted. No evidence of mitral valve stenosis. Tricuspid Valve The tricuspid valve is normal in structure. There is no tricuspid valve regurgitation noted. Pulmonic Valve The pulmonary valve is normal in structure. Mild pulmonic regurgitation[place] [address] 2 D/M-MODE ECHOCARDIOGRAM Name: GUILLERMO HUERTASANNE MICHAELS Room: [facility]#: [id number] Admission: 05/28/20 Attend Phys: Rogelio Ware MD Discharge: Date of : 46 Date of Service: 05/28/20 1439 Report #: [id number] The aortic root is normal in size. IVC is normal in size and collapses >50% with inspiration. Pericardium There is no pericardial effusion. <Conclusion> The left ventricle is normal size. There is normal left ventricular wall thickness. Left ventricular systolic function is normal. The left ventricular ejection fraction is within the normal range. LVEF is 55%. Grade I - abnormal relaxation pattern. The right ventricle is normal size. The left atrium size is normal. Aortic valve is normal No aortic regurgitation is present. There is no aortic valvular stenosis. The mitral valve is normal in structure. The tricuspid valve is normal in structure. IVC is normal in size and collapses >50% with inspiration. There is no pericardial effusion. There is normal LV segmental wall motion. <ELECTRONICALLY SIGNED> By: Raymundo Ramesh MD, FACC 05/28/20 1439 1439 1439 Raymundo Ramesh MD, FACC /INF
== END ==
LOC: M.CRD 09:58
PROVIDERS: ATTEND Internal Medicine Cardiovascular Disease
DX: I08.8 Other rheumatic multiple valve diseases (principal)

== ENCOUNTER 2020-09-28 21:04 | Emergency (ER) | payer MEDICARE ==
[~2020-09-28] VITALS: Ht 167.6 cm; Wt 91.6 kg
[2020-09-28 21:50] LABS: ABSOLUTE LYMPHOCYTES 0.7 thou/uL (0.8-5.3); ABSOLUTE MONOCYTES 0.5 thou/uL (0.0-1.2); ABSOLUTE NEUTROPHILS 3.5 thou/uL (1.6-8.1); BASOPHILS 0.8 %; EOSINOPHILS 0.1 %; HEMATOCRIT 38.1 % (37.0-47.0); HEMOGLOBIN 12.6 gm/dL (12.0-15.0); LYMPHOCYTES 15.2 %; MCH 29.4 pg (26.0-34.0); MCV 89.1 fL (80.0-100.0); MONOCYTES 10.8 %; MPV 6.8 fl. (7.2-11.1); NUCLEATED RBCS 0 /100WBC; PLATELET COUNT* 221 thou/uL (150-400); POLYS 73.1 %; RBC 4.28 mil/uL (4.20-5.00); RDW-CV 13.8 % (10.5-14.5); WBC 4.8 thou/uL (4.0-11.0)
[2020-09-28 22:00] LABS: CREATININE 1.1 mg/dL (0.6-1.3); POTASSIUM 3.7 mmol/L (3.5-5.1)
[2020-09-28 22:01] LABS: ALBUMIN 3.5 g/dL (3.4-5.0); TOTAL BILIRUBIN 0.5 mg/dL (<0.1-1.0); TOTAL PROTEIN 7.7 g/dL (6.4-8.2)
[2020-09-28] MEDS ORDERED: ZOFRAN ODT4 MG PO (23:53)
[2020-09-29 00:01] VITALS: BP 156/77
== END 2020-09-29 00:02 | disposition home or self-care (01) ==
LOC: M.ERS 21:04
PROVIDERS: Personal Emergency Response Attendant
DX: R11.2 Nausea with vomiting, unspecified (principal); T88.1XXA Other complications following immunization, not elsewhere classified, initial encounter; Z20.822 Contact with and (suspected) exposure to COVID-19; K21.9 Gastro-esophageal reflux disease without esophagitis; E03.9 Hypothyroidism, unspecified; Y84.8 Other medical procedures as the cause of abnormal reaction of the patient, or of later complication, without mention of misadventure at the time of the procedure; Y92.89 Other specified places as the place of occurrence of the external cause

== ENCOUNTER 2021-01-04 19:17 | Observation (INO) | payer MEDICARE ==
[~2021-01-04] VITALS: Ht 167.6 cm; Wt 93.0 kg
[~2021-01-04 19:17] MED LIST changes: +ZOFRAN ODT4 MG PO
[2021-01-04 19:20] VITALS: BP 171/65
[2021-01-04 21:08] LABS: ABSOLUTE BASOPHILS 0.1 thou/uL (0.0-0.2); ABSOLUTE LYMPHOCYTES 1.4 thou/uL (0.8-5.3); ABSOLUTE MONOCYTES 0.5 thou/uL (0.0-1.2); ABSOLUTE NEUTROPHILS 5.9 thou/uL (1.6-8.1); BASOPHILS 0.7 %; HEMATOCRIT 37.8 % (37.0-47.0); HEMOGLOBIN 12.6 gm/dL (12.0-15.0); LYMPHOCYTES 17.5 %; MCH 29.9 pg (26.0-34.0); MCHC 33.3 g/dL (28.0-37.0); MCV 89.8 fL (80.0-100.0); MONOCYTES 6.1 %; MPV 7.1 fl. (7.2-11.1); NUCLEATED RBCS 0 /100WBC; PLATELET COUNT* 231 thou/uL (150-400); POLYS 75.7 %; RBC 4.21 mil/uL (4.20-5.00); RDW-CV 13.8 % (10.5-14.5); WBC 7.8 thou/uL (4.0-11.0)
[2021-01-04 21:19] LABS: CALCIUM 8.9 mg/dL (8.5-10.1); CREATININE 1.1 mg/dL (0.6-1.3); POTASSIUM 3.2 mmol/L (3.5-5.1)
[2021-01-04 21:23] LABS: ALBUMIN 3.9 g/dL (3.4-5.0); MAGNESIUM 2.1 mg/dL (1.8-2.4); TOTAL BILIRUBIN 0.4 mg/dL (<0.1-1.0); TOTAL PROTEIN 7.4 g/dL (6.4-8.2)
[2021-01-05] VITALS (7 sets, daily range): BP systolic 126–164; BP diastolic 55–66
[2021-01-05 02:37] LABS: URINE BILIRUBIN NEGATIVE (Negative); URINE BLOOD NEGATIVE (Negative); URINE CLARITY CLEAR; URINE COLOR YELLOW; URINE GLUCOSE-RANDOM NEGATIVE (Negative); URINE KETONES NEGATIVE (Negative); URINE LEUKOCYTES-REFLEX NEGATIVE (Negative); URINE NITRITE-REFLEX NEGATIVE (Negative); URINE PROTEIN NEGATIVE (Negative); URINE SPECIFIC GRAVITY <= 1.005 (1.005-1.030); URINE UROBILINOGEN 0.2 E.U./dl (0.2-1.0)
--- NOTE | 2021-01-05 05:08 | NUR ---
PT ARRIVED TO THE UNIT AT 0400. A&O X 3, FORGETFUL. ON RA. DENIED PAIN, N/V. UP TO BSC WITH SBA. CALL LIGHT WITHIN REACH. BED ALARM ON FOR SAFETY. WILL COTNINUE TO MONITOR.
--- NOTE | 2021-01-05 10:32 | EKG ---
[place] [address] ELECTROCARDIOGRAM REPORT Name: JANES HUERTAS Room: [address] M.R.#: [id number] Admission: 01/05/21 Attend Phys: Wally Burdick Discharge: Date of : 46 Date of Service: 01/04/212050 Report #: [id number] THIS REPORT FOR: //name// [place] ED Test Date: 2021-01-04 Test Time: 20:51:26 Pat Name: JANES HUERTAS Department: Room: [facility] Gender: F Manager Electrical: ELIU : 1950 Requested By: Lucy Garibay Order Number: [id number] MD: Rogelio Ware Measurements Intervals [place] Rate: 60 P: 68 [place]: 191 QRS: -52 QRSD: 159 T: 99 QT: 483 QTc: 483 Interpretive Statements Sinus rhythm Left bundle branch block Baseline wander in lead(s) V2 Compared to ECG 03/24/2020 21:03:28 Left bundle-branch block now present Electronically Signed On 01-05-2021 10:31:54 CDT by Rogelio Ware [email or web address] <ELECTRONICALLY SIGNED> By: Rogelio Ware MD, FAC 01/05/211030 50 50 Rogelio Ware MD, [facility] /EPI
--- NOTE | 2021-01-05 22:52 | NUR ---
assumed care at approx 1920, pt discharge was completed and signed. information was given to family. told family that home health and case management would be calling on thursday. faxed information to home health that was requested. pt discharged from hospital approx 1999.
== END 2021-01-05 20:00 | disposition home health service (06) ==
LOC: M.ERS 19:17 → M.TBA-ER 01-05 01:41 → M.2W 01-05 03:35
PROVIDERS: Personal Emergency Response Attendant; ADMIT Internal Medicine; ATTEND Internal Medicine
DX: R53.1 Weakness (principal); Z20.822 Contact with and (suspected) exposure to COVID-19; E03.9 Hypothyroidism, unspecified; E87.6 Hypokalemia; F03.90 Unspecified dementia, unspecified severity, without behavioral disturbance, psychotic disturbance, mood disturbance, and anxiety; K21.9 Gastro-esophageal reflux disease without esophagitis; Z79.899 Other long term (current) drug therapy